=== PATIENT | female | born 1950 | race Caucasian/White ===

== ENCOUNTER → 2016-07-27 | Outpatient (CLI) | payer MEDICARE ==
[2016-07-27 10:41] LABS: Basophils # (A) 0.1 k/uL (0-0.2); Basophils % (A) 1 %; CH 31.3; CHCM 33.6; Eosinophils # (A) 0.2 k/uL (0-0.7); Eosinophils % (A) 2 %; HCT 42.1 % (34.0-46.0); HDW 2.72; HGB 13.9 gm/dL (11.4-16.0); Luc # (Auto) 0.25; Luc % (Auto) 4; Lymphocytes # (A) 1.5 k/uL (1.0-4.8); Lymphocytes % (A) 20 %; MCH 30.8 pg (25.0-35.0); MCHC 32.9 g/dL (31.0-37.0); MCV 93.7 fL (80.0-100.0); Mean Platelet Volume 7.1; Monocytes # (A) 0.4 k/uL (0-1.0); Monocytes % (A) 5 %; Neutrophils % (A) 68 %; RBC 4.49 m/uL (3.80-5.40); RDW 13.5 % (11.5-15.5); WBC 7.3 k/uL (3.8-10.6)
[2016-07-27 11:15] LABS: Calcium 9.4 mg/dL (8.4-10.2); Magnesium 2.1 mg/dL (1.6-2.3); Phosphorous 3.7 mg/dL (2.5-4.5); Potassium 4.8 mmol/L (3.5-5.1); Uric Acid 5.4 mg/dL (3.7-7.4)
[2016-07-27 11:24] LABS: % Iron Saturation 17.6 % (20-50)
== END | disposition home or self-care (01) ==
LOC: LABWHC1 09:56
PROVIDERS: ATTEND Nurse Practitioner Family
DX: N18.3 Chronic kidney disease, stage 3 (moderate) (principal); N39.0 Urinary tract infection, site not specified; D64.9 Anemia, unspecified; E55.9 Vitamin D deficiency, unspecified; E21.3 Hyperparathyroidism, unspecified; M10.9 Gout, unspecified
CPT/HCPCS: 36415; 80048; 82728; 83540; 83550; 83735; 83970; 84100; 84550; 85025

== ENCOUNTER → 2016-07-28 | Outpatient (CLI) | payer MEDICARE ==
--- NOTE | 2016-07-29 13:58 | MM ---
Reason for exam: screening (asymptomatic). Last mammogram was performed 2 years and 3 months ago. History: Patient is postmenopausal. Physical Findings: A clinical breast exam by your physician is recommended on an annual basis and results should be correlated with mammographic findings. MG 3D Screening Mammo W/Cad Bilateral CC and MLO view(s) were taken. Prior study comparison: April 29, 2014, bilateral MG screening mammo w CAD. There are scattered fibroglandular densities. Stable intramammary lymph node on the right. No significant changes when compared with prior studies. ASSESSMENT: Negative, BI-RAD 1 RECOMMENDATION: Routine screening mammogram of both breasts in 1 year.
== END | disposition home or self-care (01) ==
LOC: RADMAMWWP 14:40
PROVIDERS: ATTEND Family Medicine
DX: Z12.31 Encounter for screening mammogram for malignant neoplasm of breast (principal)
CPT/HCPCS: 77063; G0202

== ENCOUNTER → 2016-08-24 | Outpatient (CLI) | payer MEDICARE ==
[2016-08-24 11:41] LABS: Basophils % (A) 1 %; CH 32.2; CHCM 34.4; Eosinophils # (A) 0.1 k/uL (0-0.7); Eosinophils % (A) 2 %; HCT 44.5 % (34.0-46.0); HDW 2.78; HGB 14.8 gm/dL (11.4-16.0); Luc # (Auto) 0.18; Luc % (Auto) 3; Lymphocytes # (A) 1.4 k/uL (1.0-4.8); Lymphocytes % (A) 25 %; MCH 31.3 pg (25.0-35.0); MCHC 33.3 g/dL (31.0-37.0); MCV 94.1 fL (80.0-100.0); Mean Platelet Volume 6.3; Monocytes # (A) 0.3 k/uL (0-1.0); Monocytes % (A) 6 %; Neutrophils # (A) 3.7 k/uL (1.3-7.7); Neutrophils % (A) 63 %; RBC 4.72 m/uL (3.80-5.40); RDW 13.7 % (11.5-15.5); WBC 5.8 k/uL (3.8-10.6); WBC (Perox) 5.87
[2016-08-24 11:56] LABS: Appearance,Urine Cloudy (Clear); Bacteria,Urine Rare /hpf; Bilirubin,Urine Negative (Negative); Glucose,Urine (UA) Negative (Negative); Ketones,Urine Negative (Negative); Leukocyte Esterase,Urine Small (Negative); Mucus,Urine Rare /hpf; Nitrite,Urine Negative (Negative); Particle Count 5092; Protein,Urine Trace (Negative); Specific Gravity,Urine 1.018 (1.001-1.035); Squamous Epithelial Cell,Urine 8 /hpf (0-4); UA Billing (MACRO vs. MICRO) MICRO; Urobilinogen,Urine <2.0 mg/dL (<2.0); WBC,Urine 4 /hpf (0-5)
[2016-08-24 12:41] LABS: Calcium 9.3 mg/dL (8.4-10.2); Phosphorous 3.1 mg/dL (2.5-4.5); Potassium 3.9 mmol/L (3.5-5.1); Uric Acid 6.5 mg/dL (3.7-7.4)
[2016-08-24 12:51] LABS: % Iron Saturation 31.2 % (20-50)
--- NOTE | 2016-08-24 15:42 | US ---
EXAMINATION TYPE: US kidneys/renal and bladder DATE OF EXAM: 08/24/2016 3:31 PM COMPARISON: US in PACS CLINICAL HISTORY: N18.3 CKD STAGE 3. CKD, pt states no complaints at this time EXAM MEASUREMENTS: Right Kidney: 8.2 x 3.9 x 3.5 cm. Some lobation of the right kidney may be present. Left Kidney: 8.8 x 4.3 x 4.1 cm Right Kidney: Small in size, cortical thinning, no evidence of hydro Left Kidney: Small in size, cortical thinning, no evidence of hydro Bladder: wnl Bilateral Jets seen: Only right jet visualized IMPRESSION: 1. No acute ultrasound abnormality
== END | disposition home or self-care (01) ==
LOC: RADUSWWP 11:12
PROVIDERS: ATTEND Nurse Practitioner Family
DX: N18.3 Chronic kidney disease, stage 3 (moderate) (principal); N25.81 Secondary hyperparathyroidism of renal origin; E61.1 Iron deficiency; E55.9 Vitamin D deficiency, unspecified; M10.9 Gout, unspecified; N39.0 Urinary tract infection, site not specified
CPT/HCPCS: 36415; 76770; 80048; 81001; 82306; 82728; 83540; 83550; 83735; 83970; 84100; 84550; 85025

== ENCOUNTER → 2016-09-20 | Outpatient (CLI) | payer MEDICARE ==
[2016-09-20 10:56] LABS: Basophils # (A) 0.1 k/uL (0-0.2); Basophils % (A) 1 %; CH 31.6; CHCM 33.7; Eosinophils # (A) 0.1 k/uL (0-0.7); Eosinophils % (A) 3 %; HCT 39.7 % (34.0-46.0); HDW 2.65; HGB 13.3 gm/dL (11.4-16.0); Luc # (Auto) 0.18; Luc % (Auto) 3; Lymphocytes # (A) 1.3 k/uL (1.0-4.8); Lymphocytes % (A) 24 %; MCH 31.6 pg (25.0-35.0); MCHC 33.5 g/dL (31.0-37.0); MCV 94.3 fL (80.0-100.0); Mean Platelet Volume 6.5; Monocytes # (A) 0.4 k/uL (0-1.0); Monocytes % (A) 7 %; Neutrophils # (A) 3.5 k/uL (1.3-7.7); Neutrophils % (A) 63 %; RBC 4.21 m/uL (3.80-5.40); RDW 13.9 % (11.5-15.5); WBC 5.6 k/uL (3.8-10.6); WBC (Perox) 5.52
[2016-09-20 10:59] LABS: UA Billing (MACRO vs. MICRO) CHEM
[2016-09-20 11:27] LABS: Calcium 9.3 mg/dL (8.4-10.2); Magnesium 1.9 mg/dL (1.6-2.3); Phosphorous 3.7 mg/dL (2.5-4.5); Potassium 4.4 mmol/L (3.5-5.1); Uric Acid 5.8 mg/dL (3.7-7.4)
[2016-09-20 11:33] LABS: % Iron Saturation 21.7 % (20-50)
== END | disposition home or self-care (01) ==
LOC: LABWHC1 10:20
PROVIDERS: ATTEND Nurse Practitioner Family
DX: N25.81 Secondary hyperparathyroidism of renal origin (principal); N18.3 Chronic kidney disease, stage 3 (moderate); E55.9 Vitamin D deficiency, unspecified; E61.1 Iron deficiency; M10.9 Gout, unspecified; N39.0 Urinary tract infection, site not specified
CPT/HCPCS: 36415; 80048; 81003; 81050; 82306; 82728; 83540; 83550; 83735; 83970; 84100; 84156; 84550; 85025

== ENCOUNTER → 2017-01-17 | Outpatient (CLI) | payer MEDICARE ==
[2017-01-17 11:03] LABS: Appearance,Urine Cloudy (Clear); Bacteria,Urine Many /hpf; Bilirubin,Urine Negative (Negative); Glucose,Urine (UA) Negative (Negative); Ketones,Urine Negative (Negative); Leukocyte Esterase,Urine Moderate (Negative); Mucus,Urine Rare /hpf; Nitrite,Urine Negative (Negative); Particle Count 6073; Protein,Urine Negative (Negative); Specific Gravity,Urine 1.009 (1.001-1.035); Squamous Epithelial Cell,Urine 3 /hpf (0-4); UA Billing (MACRO vs. MICRO) MICRO; Urobilinogen,Urine <2.0 mg/dL (<2.0); WBC,Urine 23 /hpf (0-5)
[2017-01-17 11:13] LABS: Basophils % (A) 1 %; CH 31.9; CHCM 34.1; Eosinophils # (A) 0.2 k/uL (0-0.7); Eosinophils % (A) 3 %; HCT 41.3 % (34.0-46.0); HDW 2.67; HGB 14.1 gm/dL (11.4-16.0); Luc # (Auto) 0.13; Luc % (Auto) 2; Lymphocytes # (A) 1.5 k/uL (1.0-4.8); Lymphocytes % (A) 26 %; MCH 32.1 pg (25.0-35.0); MCHC 34.2 g/dL (31.0-37.0); MCV 93.9 fL (80.0-100.0); Mean Platelet Volume 6.6; Monocytes # (A) 0.3 k/uL (0-1.0); Monocytes % (A) 6 %; Neutrophils # (A) 3.4 k/uL (1.3-7.7); Neutrophils % (A) 62 %; RBC 4.39 m/uL (3.80-5.40); RDW 13.6 % (11.5-15.5); WBC 5.6 k/uL (3.8-10.6); WBC (Perox) 5.39
[2017-01-17 11:24] LABS: Calcium 9.3 mg/dL (8.4-10.2); Phosphorous 3.4 mg/dL (2.5-4.5); Potassium 4.6 mmol/L (3.5-5.1); Uric Acid 6.5 mg/dL (3.7-7.4)
[2017-01-17 11:33] LABS: % Iron Saturation 34.2 % (20-50)
== END | disposition home or self-care (01) ==
LOC: LABWHC1 10:13
PROVIDERS: ATTEND Nurse Practitioner Family
DX: E55.9 Vitamin D deficiency, unspecified (principal); E61.1 Iron deficiency; N18.3 Chronic kidney disease, stage 3 (moderate); M10.9 Gout, unspecified; N39.0 Urinary tract infection, site not specified; N25.81 Secondary hyperparathyroidism of renal origin
CPT/HCPCS: 36415; 80048; 81001; 82306; 82728; 83540; 83550; 83735; 83970; 84100; 84550; 85025

== ENCOUNTER → 2017-09-07 | Outpatient (CLI) | payer MEDICARE ==
--- NOTE | 2017-09-09 08:00 | MM ---
Reason for exam: screening (asymptomatic). Last mammogram was performed 1 year and 1 month ago. History: Patient is postmenopausal. Physical Findings: A clinical breast exam by your physician is recommended on an annual basis and results should be correlated with mammographic findings. MG 3D Screening Mammo W/Cad Bilateral CC and MLO view(s) were taken. Prior study comparison: July 28, 2016, bilateral MG 3d screening mammo w/cad. April 29, 2014, bilateral MG screening mammo w CAD. There are scattered fibroglandular densities. No suspicious abnormality. No significant changes when compared with prior studies. ASSESSMENT: Negative, BI-RAD 1 RECOMMENDATION: Routine screening mammogram of both breasts in 1 year.
== END | disposition home or self-care (01) ==
LOC: RADMAMWWP 09:50
PROVIDERS: ATTEND Family Medicine
DX: Z12.31 Encounter for screening mammogram for malignant neoplasm of breast (principal)
CPT/HCPCS: 77063; 77067

== ENCOUNTER → 2017-09-07 | Outpatient (CLI) | payer MEDICARE ==
[2017-09-07 11:18] LABS: Basophils # (A) 0.1 k/uL (0-0.2); Basophils % (A) 1 %; Eosinophils # (A) 0.2 k/uL (0-0.7); Eosinophils % (A) 3 %; HCT 41.7 % (34.0-46.0); HGB 14.3 gm/dL (11.4-16.0); Lymphocytes # (A) 1.7 k/uL (1.0-4.8); Lymphocytes % (A) 27 %; MCH 31.8 pg (25.0-35.0); MCHC 34.2 g/dL (31.0-37.0); MCV 93.2 fL (80.0-100.0); Mean Platelet Volume 6.6; Monocytes # (A) 0.4 k/uL (0-1.0); Monocytes % (A) 7 %; Neutrophils # (A) 3.7 k/uL (1.3-7.7); Neutrophils % (A) 60 %; Platelet Count 286 k/uL (150-450); RBC 4.48 m/uL (3.80-5.40); RDW 13.4 % (11.5-15.5); WBC 6.2 k/uL (3.8-10.6)
[2017-09-07 11:23] LABS: Appearance,Urine Cloudy (Clear); Bacteria,Urine Few /hpf; Bilirubin,Urine Negative (Negative); Blood,Urine Negative (Negative); Color,Urine Yellow; Glucose,Urine (UA) Negative (Negative); Ketones,Urine Negative (Negative); Leukocyte Esterase,Urine Moderate (Negative); Mucus,Urine Rare /hpf; Nitrite,Urine Negative (Negative); Protein,Urine Trace (Negative); Specific Gravity,Urine 1.018 (1.001-1.035); Squamous Epithelial Cell,Urine 26 /hpf (0-4); Urobilinogen,Urine <2.0 mg/dL (<2.0); WBC,Urine 12 /hpf (0-5)
[2017-09-07 11:33] LABS: Calcium 9.2 mg/dL (8.4-10.2); Magnesium 2.1 mg/dL (1.6-2.3); Phosphorus 3.5 mg/dL (2.5-4.5); Potassium 4.2 mmol/L (3.5-5.1); Uric Acid 6.7 mg/dL (3.7-7.4)
[2017-09-07 16:26] LABS: Iron Saturation 38.26 (12.00-45.00)
[2017-09-07 16:34] LABS: Vitamin D 25 Hydroxy 35.7 ng/mL (30.0-100.0)
[2017-09-07 17:01] LABS: Parathyroid Hormone Intact 92.8 pg/mL (14.0-72.0)
== END | disposition home or self-care (01) ==
LOC: LABWHC1 10:17
PROVIDERS: ATTEND Nurse Practitioner Family
DX: N18.3 Chronic kidney disease, stage 3 (moderate) (principal); N25.81 Secondary hyperparathyroidism of renal origin; E61.1 Iron deficiency; E55.9 Vitamin D deficiency, unspecified; M10.9 Gout, unspecified; N39.0 Urinary tract infection, site not specified
CPT/HCPCS: 36415; 80048; 81001; 82306; 82728; 83540; 83550; 83735; 83970; 84100; 84550; 85025

== ENCOUNTER → 2018-03-10 | Outpatient (CLI) | payer MEDICARE ==
[2018-03-10 09:47] LABS: Basophils # (A) 0.1 k/uL (0-0.2); Basophils % (A) 1 %; Eosinophils # (A) 0.1 k/uL (0-0.7); Eosinophils % (A) 2 %; HCT 43.2 % (34.0-46.0); HGB 14.2 gm/dL (11.4-16.0); Lymphocytes # (A) 1.4 k/uL (1.0-4.8); Lymphocytes % (A) 26 %; MCH 31.1 pg (25.0-35.0); MCHC 32.9 g/dL (31.0-37.0); MCV 94.5 fL (80.0-100.0); Mean Platelet Volume 6.5; Monocytes # (A) 0.3 k/uL (0-1.0); Monocytes % (A) 6 %; Neutrophils # (A) 3.5 k/uL (1.3-7.7); Neutrophils % (A) 64 %; Platelet Count 260 k/uL (150-450); RBC 4.57 m/uL (3.80-5.40); RDW 13.6 % (11.5-15.5); WBC 5.4 k/uL (3.8-10.6)
[2018-03-10 12:40] LABS: Appearance,Urine Cloudy (Clear); Bacteria,Urine Rare /hpf; Bilirubin,Urine Negative (Negative); Blood,Urine Trace (Negative); Color,Urine Yellow; Glucose,Urine (UA) Negative (Negative); Ketones,Urine Negative (Negative); Leukocyte Esterase,Urine Trace (Negative); Mucus,Urine Rare /hpf; Nitrite,Urine Negative (Negative); PH, Urine 5.5 (5.0-8.0); Protein,Urine Negative (Negative); RBC,Urine 3 /hpf (0-5); Specific Gravity,Urine 1.015 (1.001-1.035); Squamous Epithelial Cell,Urine 7 /hpf (0-4); Urobilinogen,Urine <2.0 mg/dL (<2.0); WBC,Urine 6 /hpf (0-5)
[2018-03-10 15:36] LABS: Iron Saturation 26.69 (12.00-45.00)
[2018-03-10 15:45] LABS: Vitamin D 25 Hydroxy 37.1 ng/mL (30.0-100.0)
[2018-03-10 15:49] LABS: Albumin 4.2 g/dL (3.80-4.90); Anion Gap 6.5 mmol/L (4.00-12.00); Calcium 8.9 mg/dL (8.7-10.3); Carbon Dioxide 27.5 mmol/L (21.6-31.8); Phosphorus 3.3 mg/dL (2.4-5.1); Potassium 4.3 mmol/L (3.5-5.5); Uric Acid 7.5 mg/dL (2.9-7.7)
== END | disposition home or self-care (01) ==
LOC: LABWHC1 08:59
PROVIDERS: ATTEND Internal Medicine Nephrology
DX: N39.0 Urinary tract infection, site not specified (principal); N25.81 Secondary hyperparathyroidism of renal origin; N18.3 Chronic kidney disease, stage 3 (moderate); D63.1 Anemia in chronic kidney disease; M10.9 Gout, unspecified
CPT/HCPCS: 36415; 80048; 81001; 82040; 82306; 82728; 83540; 83550; 83735; 83970; 84100; 84550; 85025

== ENCOUNTER → 2018-07-04 | Outpatient (CLI) | payer MEDICARE ==
--- NOTE | 2018-07-04 11:17 | US ---
EXAMINATION TYPE: US venous doppler duplex LE RT DATE OF EXAM: 07/04/2018 11:04 AM COMPARISON: NONE CLINICAL HISTORY: 68-year-old female I80.9 DVT M25.561 Pain in RLE. Pain right leg for 1 week. Patien t on Coumadin - AFIB SIDE PERFORMED: right TECHNIQUE: The lower extremity deep venous system is examined utilizing real time linear array sonog monik with graded compression, doppler sonography and color-flow sonography. FINDINGS: VESSELS IMAGED: External Iliac Vein (EIV) Common Femoral Vein Deep Femoral Vein Greater Saphenous Vein * Femoral Vein Popliteal Vein Small Saphenous Vein * Proximal Calf Veins Posterior tibial veins (* superficial vessels) Respiratory Therapist Assistant notes: Right Leg: No evidence of DVT as visualized. Complex anechoic area right poplitea l fossa = 5.0 x 1.0 x 2.6cm, probable Vick's cyst. Previously, this measured 2.9 x 1.1 x 2.6 cm with a 5 mm loose body. IMPRESSION: 1. No evidence for DVT within the right lower extremity. 2. Complex, moderate sized Vick's cyst measuring 5.0 x 2.6 cm versus 2.9 x 2.6 cm, previously. 5 mm body is again seen within.
== END | disposition home or self-care (01) ==
LOC: RADUSWWP 10:34
PROVIDERS: ATTEND Orthopaedic Surgery
DX: M71.21 Synovial cyst of popliteal space [Baker], right knee (principal); M17.11 Unilateral primary osteoarthritis, right knee; S76.311A Strain of muscle, fascia and tendon of the posterior muscle group at thigh level, right thigh, initial encounter

== ENCOUNTER → 2018-07-11 | Outpatient (CLI) | payer MEDICARE ==
[2018-07-11 13:16] LABS: Basophils # (A) 0.1 k/uL (0-0.2); Basophils % (A) 1 %; Eosinophils # (A) 0.1 k/uL (0-0.7); Eosinophils % (A) 3 %; HCT 42.8 % (34.0-46.0); Lymphocytes # (A) 1.8 k/uL (1.0-4.8); Lymphocytes % (A) 33 %; MCH 31.2 pg (25.0-35.0); MCHC 32.8 g/dL (31.0-37.0); MCV 95.2 fL (80.0-100.0); Mean Platelet Volume 6.4; Monocytes # (A) 0.3 k/uL (0-1.0); Monocytes % (A) 6 %; Neutrophils % (A) 55 %; Platelet Count 261 k/uL (150-450); RDW 13.2 % (11.5-15.5); WBC 5.5 k/uL (3.8-10.6)
[2018-07-11 13:58] LABS: Appearance,Urine Cloudy (Clear); Bacteria,Urine Rare /hpf; Bilirubin,Urine Negative (Negative); Blood,Urine Trace (Negative); Color,Urine Yellow; Glucose,Urine (UA) Negative (Negative); Hyaline Casts,Urine 3 /lpf (0-2); Ketones,Urine Negative (Negative); Leukocyte Esterase,Urine Small (Negative); Mucus,Urine Rare /hpf; Nitrite,Urine Negative (Negative); Protein,Urine Trace (Negative); RBC,Urine 2 /hpf (0-5); Specific Gravity,Urine 1.023 (1.001-1.035); Squamous Epithelial Cell,Urine 5 /hpf (0-4); Urobilinogen,Urine <2.0 mg/dL (<2.0); WBC,Urine 15 /hpf (0-5)
[2018-07-11 18:34] LABS: Iron Saturation 24.69 (12.00-45.00); Parathyroid Hormone Intact 76.1 pg/mL (14.0-72.0)
[2018-07-11 18:36] LABS: Vitamin D 25 Hydroxy 32.8 ng/mL (30.0-100.0)
[2018-07-11 18:40] LABS: Albumin 4.2 g/dL (3.80-4.90); Anion Gap 7.1 mmol/L (4.00-12.00); Calcium 9.4 mg/dL (8.7-10.3); Carbon Dioxide 26.9 mmol/L (21.6-31.8); Magnesium 2.1 mg/dL (1.5-2.4); Phosphorus 4.1 mg/dL (2.4-5.1); Potassium 4.9 mmol/L (3.5-5.5); Uric Acid 6.4 mg/dL (2.9-7.7)
== END ==
LOC: LABWHC1 12:10
PROVIDERS: ATTEND Internal Medicine Nephrology
DX: N18.3 Chronic kidney disease, stage 3 (moderate) (principal); E21.3 Hyperparathyroidism, unspecified; D63.1 Anemia in chronic kidney disease; E55.9 Vitamin D deficiency, unspecified; M10.9 Gout, unspecified; N39.0 Urinary tract infection, site not specified
CPT/HCPCS: 36415; 80048; 81001; 82040; 82306; 82728; 83540; 83550; 83735; 83970; 84100; 84550; 85025

== ENCOUNTER → 2018-12-22 | Outpatient (CLI) | payer MEDICARE ==
--- NOTE | 2018-12-26 09:22 | MM ---
Reason for exam: screening (asymptomatic). Last mammogram was performed 1 year and 3 months ago. History: Patient is postmenopausal. Physical Findings: A clinical breast exam by your physician is recommended on an annual basis and results should be correlated with mammographic findings. MG 3D Screening Mammo W/Cad Bilateral CC and MLO view(s) were taken. Prior study comparison: September 07, 2017, bilateral MG 3d screening mammo w/cad. July 28, 2016, bilateral MG 3d screening mammo w/cad. There are scattered fibroglandular densities. There is chronic nodularity bilaterally. No significant changes when compared with prior studies. ASSESSMENT: Benign, BI-RAD 2 RECOMMENDATION: Routine screening mammogram of both breasts in 1 year.
== END | disposition home or self-care (01) ==
LOC: RADMAMWWP 13:57
PROVIDERS: ATTEND Family Medicine
DX: Z12.31 Encounter for screening mammogram for malignant neoplasm of breast (principal)
CPT/HCPCS: 77063; 77067

== ENCOUNTER → 2019-03-20 | Outpatient (CLI) | payer MEDICARE ==
[2019-03-20 11:25] LABS: HCT 38.6 % (34.0-46.0); HGB 12.8 gm/dL (11.4-16.0); MCH 31.4 pg (25.0-35.0); MCHC 33.1 g/dL (31.0-37.0); MCV 94.9 fL (80.0-100.0); Mean Platelet Volume 6.2; Platelet Count 245 k/uL (150-450); RBC 4.07 m/uL (3.80-5.40); RDW 13.5 % (11.5-15.5); WBC 7.5 k/uL (3.8-10.6)
[2019-03-20 11:41] LABS: INR 1.7 (<1.2); Partial Thromboplastin Time 29.7 sec (22.0-30.0); Prothrombin Time 17.3 sec (9.0-12.0)
[2019-03-20 12:14] LABS: Albumin 3.7 g/dL (3.5-5.0); Calcium 8.9 mg/dL (8.4-10.2); Potassium 3.6 mmol/L (3.5-5.1); Total Bilirubin 0.9 mg/dL (0.2-1.3); Total Protein 6.3 g/dL (6.3-8.2)
[2019-03-20 12:15] LABS: Appearance,Urine Clear (Clear); Bilirubin,Urine Negative (Negative); Blood,Urine Negative (Negative); Color,Urine Light Yellow; Glucose,Urine (UA) Negative (Negative); Ketones,Urine Negative (Negative); Leukocyte Esterase,Urine Negative (Negative); Nitrite,Urine Negative (Negative); Protein,Urine Negative (Negative); Specific Gravity,Urine 1.006 (1.001-1.035); Urobilinogen,Urine <2.0 mg/dL (<2.0)
== END | disposition home or self-care (01) ==
LOC: LABPAT 10:44
PROVIDERS: ATTEND Orthopaedic Surgery
DX: Z01.812 Encounter for preprocedural laboratory examination (principal); Z01.818 Encounter for other preprocedural examination; Z79.01 Long term (current) use of anticoagulants
CPT/HCPCS: 36415; 80053; 81003; 85027; 85610; 85730; 87070

== ENCOUNTER 2019-04-02 10:54 | Day surgery (SDC) | payer MEDICARE ==
[2019-03-28 15:06] VITALS: BMI 37.1
[~2019-04-02 10:54] MED LIST: ACETAMINOPHEN TAB 500 MG TAB PO ONE; CLINDAMYCIN 900 MG in DEXTROSE 5% IN WATER 50 ML IVPB ONE; HYDROmorphone 0.5 MG/0.5 ML SYRINGE IVP PRN; MELOXICAM 7.5 MG TAB PO ONE; MIDAZOLAM 2 MG/2 ML VIAL IV PRN; ONDANSETRON 4 MG/2 ML VIAL IVP ONE; ROPIVACAINE 246.25 MG, EPINEPHrine 0.5 MG, KETOROLAC 30 MG, cloNIDine HCL/PF 80 MCG, WA... MISCELLANE ONE; TRANEXAMIC ACID 1,000 MG in SODIUM CHLORIDE 0.9% 100 ML IVPB ONE
[2019-04-02] MEDS ORDERED: LIDOCAINE 1% 20 ML VIAL (10MG/ML) FOR IV START INTRADERMA ONE (11:30)
[2019-04-02] MEDS: LACTATED RINGERS 1,000 ML IV SCH ×4 (11:30→22:02)
[2019-04-02] MEDS ORDERED: DEXAMETHASONE SOD PHOSPHATE 10 MG/ML 1 ML VIAL IV ONE (11:37)
[2019-04-02 11:43] LABS: INR 1.1 (<1.2); Prothrombin Time 11.6 sec (9.0-12.0)
[2019-04-02] MEDS ORDERED: MIDAZOLAM 2 MG/2 ML VIAL IVP ONE (11:51)
[2019-04-02] MEDS ORDERED: fentaNYL (PF) 50 MCG/ML 2 ML AMP IVP ONE (11:52)
--- NOTE | 2019-04-02 12:25 | P.ANPRN ---
Procedure Note - Anesthesia - Nerve Block Performed Left Adductor Canal Infusion Time Out Performed: Yes ([id number]) Date of Procedure: 04/02/19 Procedure Start Time: 11:51 Procedure Stop Time: 12:04 Location of Patient: PreOp Indication: Acute Post-Operative Pain, Requested by Surgeon Specifically requested for management of pain by DrRemington: Bao Bell Sedation Type: Sedate with meaningful contact maintained Preparation: Sterile Prep, Sterile Dressing Position: Supine Catheter Depth at Skin (cm): 5 Catheter: Indwelling Needle Types: Pajunk Needle Gauge: 20 Ultrasound used to visualize needle placement: Yes Ultrasound used to observe medication spread: Yes Injectate: Other (see comment) (Ropi 0.5% 10 cc and Lido 1% with epi 10 cc. Mixture) Blood Aspirated: Yes Pain Paresthesia on Injection Noted: Yes Resistance on Injection: Normal Image Stored and Saved: Yes Events: Uneventful and Well Tolerated
[2019-04-02] MEDS ORDERED: PROPOFOL 10 MG/ML 20 ML VIAL IV ONE (12:34)
[2019-04-02] MEDS ORDERED: fentaNYL (PF) 50 MCG/ML 2 ML AMP ONE (12:34)
[2019-04-02] MEDS ORDERED: MIDAZOLAM 2 MG/2 ML VIAL ONE (12:34)
[2019-04-02] MEDS ORDERED: PHENYLEPHRINE-0.9% NACL SYG 1 MG/10 ML SYRINGE ONE (12:34)
[2019-04-02] MEDS ORDERED: MAGNESIUM HYDROXIDE 2,400 MG/10 ML CUP PO PRN (12:40)
[2019-04-02] MEDS ORDERED: HYDROcodone/APAP 5-325MG 1 EACH TAB PO PRN (12:40)
[2019-04-02] MEDS ORDERED: ONDANSETRON 4 MG/2 ML VIAL IVP PRN (12:40)
[2019-04-02] MEDS ORDERED: NALOXONE 0.4 MG/ML 1 ML VIAL IV PRN (12:40)
[2019-04-02] MEDS ORDERED: NA PHOS,M-B/NA PHOS,DI-BA 133 ML ENEMA RECTAL PRN (12:40)
[2019-04-02] MEDS ORDERED: ceFAZolin 3,000 MG in SODIUM CHLORIDE 0.9% IRRIGATIO 3,000 ML IRRIGATION ONE (12:40)
[2019-04-02] MEDS ORDERED: HYDROmorphone 0.5 MG/0.5 ML SYRINGE IVP PRN ×3 (12:40)
[2019-04-02] MEDS ORDERED: TEMAZEPAM 15 MG CAP PO PRN (12:40)
[2019-04-02] MEDS ORDERED: BISACODYL 10 MG SUPP RECTAL PRN (12:40)
[2019-04-02] MEDS ORDERED: LACTATED RINGERS 1,000 ML IV ONE (14:00)
--- NOTE | 2019-04-02 14:18 | P.OP ---
Date of Procedure: 04/02/19 Procedure(s) Performed: PREOPERATIVE DIAGNOSIS: Left knee severe osteoarthritis with genu varum POSTOPERATIVE DIAGNOSIS: Left knee severe osteoarthritis with genu varum OPERATION: Left knee cemented total replacement arthroplasty. ANESTHESIA: Spinal ESTIMATED BLOOD LOSS: 100 ml. INSTRUMENT/CONTROL TECHNICIAN: Nallely Mayo PA-C (assistance with: patient positioning, retraction, exposure, hemostasis, leg positioning, implantation, irrigation, closure, dressing) COMPLICATIONS: None apparent. COMPONENTS IMPLANTED: Journey II total knee system from [employer], [facility] INDICATIONS: Mrs. Mak is a 69-year-old female with a history of left knee osteoarthritis. The patient's knee is end-stage, and conservative management has failed. The operation of knee replacement has been discussed at length in the office, as well as potential risks and complications. These are inclusive of, but not limited to: bleeding, infection, scarring, discomfort, blood vessel and nerve damage, need for further surgery, failure to relieve symptoms, persistence, recurrence, or worsening of problems, loosening, dislocation, wear, blood clot, pulmonary embolism, , gait dysfunction, stiffness, and other risks as discussed in the office. The patient elects to proceed and the consent form has been signed. PROCEDURE: The patient was taken to the operating room and positioned on the operating room table in the supine position. Anesthesia was initiated. Care was taken to make sure that all pressure points were adequately padded. The operative lower extremity was prepped and draped in the usual aseptic fashion using ChloraPrep. Ioban drape was used for the case and the patient received intravenous antibiotics within one hour of the incision. A pneumotourniquet and leg juan were used for the case. The limb was exsanguinated with an Esmarch bandage and the tourniquet was inflated to 350 mmHg. Time-out was called confirming the patient's identity, side, procedure and administration of antibiotics and tranexamic acid. The incision was then created midline directly over the left knee, carried down through skin and into the subcutaneous tissues and down to fascia. Full thickness subcutaneous medial flap was developed. Medial parapatellar arthrotomy was performed and the interior of the knee was inspected. There was end-stage osteoarthritis of the knee with a mild to moderate genu varum type deformity. The fat pad was excised and proximal medial release on the tibia was completed using meticulous dissection and a curved osteotome. The anterior cruciate ligament was taken down. Note was made of significant attrition of the anterior and significant degenerative appearance of the cruciate ligaments. The exposure was excellent. The knee was flexed 90 degrees and the patella was everted. The [employer] pre- made distal cutting block was attached and pinned into position. The planned cut was analyzed visually and with the alignment yennifer and found to be satisfactory without the need for any adjustment. The oscillating saw was then used to make the distal femoral cut and make the alignment holes for the 5 in 1 block. This cut was confirmed to be flat with the flat end of an osteotome. The 5 in 1 block was then used to create the anterior posterior condylar resections and the chamfer cuts. The retractors were placed around the tibia and the tibial surface was addressed. The [employer] pre-made guide was placed onto the exposed tibial surface and pinned into position to siri the rotational alignment. The alignment of the guide was checked for depth of plannned resection, slope, and varus valgus. Guide was confirmed to be in good position and the tibial cut was then created with protection of the posterior neurovascular structures and the collateral ligaments. The tibial cut surface was removed and sized. Spacer block technique was then used to confirm that the flexion and extension gaps were equal. Soft tissue releases and adjustment of the tibial and/or femoral cuts were made, as necessary, until the gaps were equal. This included release of the posterior cruciate ligament, which was excessively tight in this patient. Prior to placing trial components, anesthetic solution consisting of ropivicaine with epinephrine, ketorolac, and clonidine was injected carefully and methodically in a grid pattern using aspiration technique into the soft tissue around the knee circumferentially, starting with the deeper tissues first and progressing to fascia, and then finally the skin/subcutaneous tissue. Particular care was taken when injecting the posterior capsule, with avoidance of the midline posterior area. The trial components were inserted. The tibial tray was allowed to self center and the patella was noted to track very well. The position of the tibial component was marked and noted to be nearly exactly aligned with the pre-drilled holes from the [employer] guide. The tibia was then finished for a stemmed tibial component. Patellar resurfacing was performed using a reamer. The size of the required patellar component was estimated and the patellar surface was then reamed down to a residual thickness which would recreate the [place] thickness with the component. The exact placement of the patellar component was adjusted for position based on preoperative x-rays and intraoperative findings. Trial components were removed and the cut surfaces of the bone were pulse lavaged thoroughly and dried. Cement was mixed on the back table and applied to the final components. Cement was then applied to the tibial surface and pressurized into the surface using finger pressurization technique. The tibial component was then applied and excess cement was removed after it was impacted securely and noted to be flush with the cut surface. In similar fashion, the cement was applied to the cut femoral surface, pressurized in using finger pressurization and the component was impacted into place. Excess cement was removed. The polyethylene spacer was then implanted and locked into position. The patellar component was then applied in similar technique and a patellar clamp was used to hold the patella in place as the cement hardened. Once the cement had fully hardened, the knee was reinspected. Any other cement extrusion was removed and final kinematic testing showed range of motion from 0 to 130 degrees with excellent stability, both medially and laterally and appropriate alignment of the leg. Patellar tracking was excellent. The knee was then thoroughly pulse lavaged with normal saline. The tourniquet was deflated and hemostasis was obtained with electrocautery and IV tranexamic acid, 1 g given at the start of the operation and 1 g at the start of closure. Closure was with #2 Ethibond in the fascia/capsule and supplemented with #2 Quill, 2-0 Vicryl suture was used for the subcutaneous tissues and 3-0 Quill for the skin. Dermabond/Steri-Strips were then applied. A lightly compressive dressing was applied using Webril and an Gato wrap. The patient was then transferred to stretcher and taken to the recovery room in stable condition. Sponge and needle counts were correct.
[2019-04-02] MEDS ORDERED: ROPIVACAINE 0.2%-NS ON-Q PUMP 1,090 MG, EMPTY PAIN BALL 1 EACH MISCELLANE PRN (14:59)
--- NOTE | 2019-04-02 15:32 | XR ---
EXAMINATION TYPE: XR knee limited LT DATE OF EXAM: 04/02/2019 COMPARISON: 09/14/2015 HISTORY: Post TKA TECHNIQUE: 2 views left knee FINDINGS: Femoral and tibial components of in place of the knee postsurgical changes are present. No acute fractures are evident IMPRESSION: 1. No acute fractures post knee replacement
[2019-04-02] MEDS ORDERED: WARFARIN 5 MG TAB PO ONE (18:00)
[2019-04-02] MEDS: CLINDAMYCIN 900 MG in DEXTROSE 5% IN WATER 50 ML IVPB SCH ×4 (18:16→22:40)
[2019-04-02] MEDS: SENNOSIDES-DOCUSATE SODIUM 1 EACH TAB PO SCH (20:53)
[2019-04-02] MEDS: METOPROLOL TARTRATE 50 MG TAB PO SCH (20:54)
[2019-04-02] MEDS: PRAVASTATIN SODIUM 40 MG TAB PO SCH (20:54)
[2019-04-02] MEDS: cloNIDine HCL 0.1 MG TAB PO SCH (20:58)
[2019-04-02] MEDS: LATANOPROST 0.005% OPHTH DROPS 2.5 ML BTL RIGHT EYE SCH (21:00)
--- NOTE | 2019-04-02 21:17 | CONS ---
CONSULTATION DATE OF SERVICE: 04/02/2019 REASON FOR CONSULTATION: Advice regarding atrial ablation, hypertension, multiple medical issues, requested by Dr. Bell. HISTORY OF PRESENT ILLNESS: This 69-year-old woman with a past medical history of multiple medical problems including history of atrial fibrillation, hypertension, pneumonia, hyperlipidemia, hypothyroidism, being followed by Dr. Priscilla Jacobs in the outpatient setting was admitted after left total knee arthroplasty by Dr. Bell. The patient was taking Coumadin previously, which was reversed for surgery. INR is 1.1. Otherwise, there is no history of fever, rigors. No history of headache, loss of consciousness, seizures at this time. PAST MEDICAL HISTORY: History of atrial fibrillation, hypertension, hyperlipidemia, hypothyroidism, stage III kidney disease. MEDICATIONS: Prior to admission include home medications are: 1. Vitamin D2 50,000 every 14 days. 2. Coumadin 2 mg Tuesday, Tuesday, Tuesday. 3. HydroDIURIL 12.5 mg p.o. daily. 4. Catapres 0.1 p.o. b.i.d. 5. Coumadin 4 mg Tuesday, Tuesday, , Tuesday. 6. Lopressor 50 mg p.o. b.i.d. 7. Pravachol 40 mg q.h.s. 8. Synthroid 100 mcg p.o. q.a.m. 9. Xalatan 1 drop right eye q.h.s. 10.Colace 100 mg p.o. b.i.d. ALLERGIES: PENICILLIN. FAMILY HISTORY: History of cancer in the family. SOCIAL HISTORY: No history of smoking. No history of alcohol intake. REVIEW OF SYSTEMS: ENT: No diminished hearing, no diminished vision. CARDIOVASCULAR: No angina, or palpitations, otherwise mentioned earlier. RESPIRATIONS: No cough or hemoptysis. GI no nausea or vomiting. no dysuria or hematuria. NERVOUS SYSTEM: No numbness or weakness. ALLERGY/IMMUNOLOGY: No asthma or hayfever. MUSCULOSKELETAL as mentioned earlier. HEMATOLOGY: As mentioned earlier. ENDOCRINE: As mentioned earlier, hypothyroidism. CONSTITUTIONAL: As mentioned earlier. DERMATOLOGY: Negative. RHEUMATOLOGY negative. PSYCHIATRY as mentioned earlier. PHYSICAL EXAMINATION: GENERAL: The patient is alert, oriented x3. VITAL SIGNS: Pulse 69, blood pressure 110/73, respiration 15, temperature 97.2, pulse ox 94% on room air. HEENT: Conjunctivae normal. Oral mucosa moist. NECK is no jugular venous distention. No carotid bruit. No lymph node enlargement. CARDIOVASCULAR SYSTEM: S1, S2 muffled. No S3, no S4. RESPIRATIONS: Breath sounds diminished in the bases. A few scattered rhonchi. No crackles. ABDOMEN: Soft, nontender. LEGS: Status post knee arthroplasty. NERVOUS SYSTEM: Higher functions as mentioned earlier. Moves all 4 limbs. No focal motor or sensory deficits. LYMPHATICS: No lymph nodes palpable in the neck, axillae or groin. SKIN: No ulcer, rash or bleeding. JOINTS: No active deforming arthropathy. LABS: INR is 1.1. Other labs are the preop labs hematology, coags are within normal limits. Creatinine is 1.22, LDL is 115. The PTH was 76.1. TSH was 8. ASSESSMENT: 1. Status post left total knee joint arthroplasty. 2. Atrial fibrillation. 3. Hypertension. 4. Hyperlipidemia. 5. Hypothyroidism. 6. History of stage III kidney disease. 7. Tonsillectomy. 8. History of colonoscopy. 9. FULL CODE. RECOMMENDATIONS AND DISCUSSION: In this 69-year-old woman who presented after surgery. At this time, I recommend continue the current medications, management and symptomatic treatment. Resume the home medications. Follow with Orthopedics, Coumadin protocol and continue to monitor. Other than that , monitor PT, INR closely. I would also repeat a BMP to ensure stability for the renal function. Otherwise, rest of the medications will be continued and we will follow the patient closely. A copy of this dictation being forwarded to Dr. Priscilla Jacobs who is the primary physician. MMODL / IJN: [id number] /
[2019-04-03] MEDS: LEVOTHYROXINE 100 MCG TAB PO SCH ×2 (05:43→06:02)
[2019-04-03] MEDS: LACTATED RINGERS 1,000 ML IV SCH ×4 (08:34→22:12)
--- NOTE | 2019-04-03 08:38 | P.PN ---
Subjective Progress Note Date: 04/03/19 Principal diagnosis: Status post left total knee arthroplasty This is a 69 year-old female post left total knee arthroplasty. This is post-op day 1. The patient was evaluated at the bedside today. She states she had a little nausea this morning but it has resolved. The patient denies vomiting, abdominal pain, shortness of breath, and chest pain this morning. She states her pain is controlled at this time. The patient has been up with physical therapy and ambulated in the hallway. Objective - Vital Signs Vital signs: Vital Signs Temp 97.5 F L 04/03/19 07:20 Pulse 83 04/03/19 07:20 Resp 17 04/03/19 07:20 BP 119/78 04/03/19 07:20 Pulse Ox 93 L 04/03/19 07:20 Intake & Output 04/02/19 04/03/19 04/03/19 18:59 06:59 18:59 Intake Total 1557 600 Output Total 100 150 Balance 1457 600 -150 Weight 83.461 kg Intake: IV 1557 Intake, IV Titration 600 Amount Lactated Ringers 1,000 ml 600 @ 100 mls/hr IV .Q10H ROMANA Rx#:[id number] Output: Urine 150 Estimated Blood Loss 100 Other: Voiding Method Toilet Toilet # Voids 2 - Exam The patient does not appear in acute distress. Alert and orientated x3. Nick ssing is clean dry and intact. Incision appears fine with no erythema or active drainage. Calf is soft and nontender. Good foot and ankle motion without difficulty. Sensation and circulatory status is intact. - Labs CBC & Chem 7: 04/03/19 08:32 04/03/19 08:32 Assessment and Plan (1) Primary osteoarthritis of left knee Current Visit: Yes Status: Acute Code(s): M17.12 - UNILATERAL PRIMARY OSTEOARTHRITIS, LEFT KNEE SNOMED Code(s): 358065768613862 (2) Status post total left knee replacement using cement Current Visit: Yes Status: Acute Code(s): Z96.652 - PRESENCE OF LEFT ARTIFICIAL KNEE JOINT SNOMED Code(s): 8701227334293 (3) A-fib Current Visit: Yes Status: Acute Code(s): I48.91 - UNSPECIFIED ATRIAL FIBRILLATION SNOMED Code(s): 25976388 (4) Hypertension Current Visit: Yes Status: Acute Code(s): I10 - ESSENTIAL (PRIMARY) HYPERTENSION SNOMED Code(s): 83684348 (5) Hyperlipidemia Current Visit: Yes Status: Acute Code(s): E78.5 - HYPERLIPIDEMIA, UNSPECIFIED SNOMED Code(s): 22928909 (6) Hypothyroidism Current Visit: Yes Status: Acute Code(s): E03.9 - HYPOTHYROIDISM, UNSPECIFIED SNOMED Code(s): 21610580 (7) Chronic kidney disease, stage 3 Current Visit: Yes Status: Acute Code(s): N18.3 - CHRONIC KIDNEY DISEASE, STAGE 3 (MODERATE) SNOMED Code(s): 248999015 Plan: 1. Continue pain control 2. Anticoagulation with Coumadin 3. Continue physical therapy and ambulation 4. Anticipate discharge home with homecare tomorrow
[2019-04-03] MEDS: cloNIDine HCL 0.1 MG TAB PO SCH ×2 (08:41→22:11)
[2019-04-03] MEDS: HYDROCHLOROTHIAZIDE 12.5 MG CAP PO SCH (08:41)
[2019-04-03] MEDS: METOPROLOL TARTRATE 50 MG TAB PO SCH ×2 (08:41→22:11)
[2019-04-03 09:00] LABS: Basophils % (A) 0 %; Eosinophils % (A) 0 %; HCT 34.2 % (34.0-46.0); HGB 11.5 gm/dL (11.4-16.0); Lymphocytes # (A) 0.7 k/uL (1.0-4.8); Lymphocytes % (A) 4 %; MCH 31.7 pg (25.0-35.0); MCHC 33.7 g/dL (31.0-37.0); Mean Platelet Volume 6.2; Monocytes # (A) 0.4 k/uL (0-1.0); Monocytes % (A) 2 %; Neutrophils # (A) 15.3 k/uL (1.3-7.7); Neutrophils % (A) 93 %; Platelet Count 330 k/uL (150-450); RBC 3.64 m/uL (3.80-5.40); RDW 13.1 % (11.5-15.5); WBC 16.5 k/uL (3.8-10.6)
[2019-04-03 09:18] LABS: INR 1.2 (<1.2); Prothrombin Time 12.8 sec (9.0-12.0)
[2019-04-03 09:22] LABS: Calcium 8.7 mg/dL (8.4-10.2); Potassium 3.7 mmol/L (3.5-5.1)
[2019-04-03] MEDS ORDERED: FUROSEMIDE 10 MG/ML 2 ML VIAL IV ONE (11:50)
--- NOTE | 2019-04-03 14:32 | P.PN ---
Progress Note - Text Progress Note Date: 04/03/19 Patient seen at 6:40 am. Pt without complaints. Pain controlled. Denies leg weakness. Left adductor canal catheter site clean and dry. OnQ @ 8 ml/hr A/P POD#1 s/p L TKA - continue onQ @ 8 ml/hr
[2019-04-03] MEDS: HYDROcodone/APAP 5-325MG 1 EACH TAB PO PRN (17:09)
[2019-04-03] MEDS ORDERED: WARFARIN 5 MG TAB PO ONE (18:00)
--- NOTE | 2019-04-03 19:16 | PN ---
PROGRESS NOTE DATE OF SERVICE: 04/03/2019 This 69-year-old woman who was admitted with left total knee arthroplasty, is improving significantly. No chest pain. No palpitations. No fever. PHYSICAL EXAM: Alert and oriented x3. The pulse is 90, blood pressure 116/77, respirations 16, temperature 97.8, pulse ox 98% on room air. HEENT: Conjunctivae normal. NECK: No JVD. CARDIOVASCULAR: S1, S2 muffled. RESPIRATORY: Breath sounds diminished in the bases. No rhonchi. No crackles. ABDOMEN soft, nontender. LEGS status post arthroplasty. NERVOUS SYSTEM: No focal deficits. LABS: WBC 16.5, creatinine is 1.19. ASSESSMENT: 1. Status post left total knee arthroplasty. 2. Increased WBC, possibly reactive. 3. Atrial fibrillation. 4. Hypertension. 5. Hyperlipidemia. 6. History of hypothyroidism. 7. History of stage 3 chronic kidney disease. 8. Tonsillectomy. 9. History of colonoscopy. 10.FULL CODE. RECOMMENDATIONS AND DISCUSSION: Recommend to continue current medications, management and symptomatic treatment. Continue with incentive spirometry. Continue the DVT prophylaxis. The patient is stable. Recommend repeat labs as an outpatient. Otherwise, continue to monitor. Further recommendations to follow. MMODL / IJN: [id number] /
[2019-04-03] MEDS: PRAVASTATIN SODIUM 40 MG TAB PO SCH (22:11)
[2019-04-03] MEDS: SENNOSIDES-DOCUSATE SODIUM 1 EACH TAB PO SCH (22:11)
[2019-04-03] MEDS: LATANOPROST 0.005% OPHTH DROPS 2.5 ML BTL RIGHT EYE SCH (22:11)
[2019-04-04] MEDS: LEVOTHYROXINE 100 MCG TAB PO SCH (04:32)
[2019-04-04] MEDS ORDERED: ACETAMINOPHEN TAB 325 MG TAB PO PRN (05:32)
[2019-04-04 07:31] LABS: INR 1.8 (<1.2); Prothrombin Time 18.2 sec (9.0-12.0)
[2019-04-04 07:32] LABS: Calcium 8.2 mg/dL (8.4-10.2); Potassium 3.2 mmol/L (3.5-5.1)
[2019-04-04 07:45] VITALS: BP 106/73; PULSE 80; RESP 16; TEMP 98.7
--- NOTE | 2019-04-04 08:43 | P.DS ---
Providers Expected date of discharge: 04/04/19 Attending physician: Bao Bell Consults: 04/02/19 12:40 Consult Physician Routine Consulting Provider: Gracy Evans Consult Reason/Comments: medical managment Do you want consulting provider notified?: Yes Primary care physician: Priscilla Jacobs - Discharge Diagnosis(es) (1) Primary osteoarthritis of left knee Current Visit: Yes Status: Acute (2) Status post total left knee replacement using cement Current Visit: Yes Status: Acute (3) A-fib Current Visit: Yes Status: Acute (4) Hypertension Current Visit: Yes Status: Acute (5) Hyperlipidemia Current Visit: Yes Status: Acute (6) Hypothyroidism Current Visit: Yes Status: Acute (7) Chronic kidney disease, stage 3 Current Visit: Yes Status: Acute Hospital Course: This is a pleasant 69-year-old female last seen in our office with complaints of left knee pain. Patient has known history of degenerative arthritis of the left knee and presented to discuss options. After discussion and consideration, the patient elected to proceed with a left total knee arthroplasty. Patient was se en preoperatively, and medically cleared for surgery by Dr. Jacobs . Patient was admitted to [facility] underwent left total knee arthroplasty on 04/02/[address] Bell. The procedure was performed without complications or sequelae. The patient is seen and evaluated at bedside today. Pain is well-controlled. Patient has no new complaints today and denies any fevers, chills, nausea, vomiting, or shortness of breath. Vital signs are stable. Dressing is clean dry and intact. Incision looks fine with no erythema or active drainage. Calf is soft and nontender. Patient has full foot and ankle motion without difficulty. Patient's left lower extremity is neurovascularly intact. The patient is orthopedically stable for discharge today. Pertinent Studies: Laboratory Tests 04/03/19 04/04/19 04/04/19 08:32 06:52 06:52 WBC 16.5 H RBC 3.64 L PT 18.2 H INR 1.8 H Potassium 3.2 L BUN 20 H Creatinine 1.22 H Patient Condition at Discharge: Stable Plan - Discharge Summary Discharge Rx Participant: Yes New Discharge Prescriptions: New Docusate [Colace] 100 mg PO BID #60 capsule HYDROcodone/APAP 5-325MG [[employer] 5] 1 - 2 each PO Q4-6H PRN #50 tab PRN Reason: Pain No Action cloNIDine HCL [Catapres] 0.1 mg PO BID Pravastatin Sodium [Pravachol] 40 mg PO HS Levothyroxine Sodium [Synthroid] 100 mcg PO QAM Latanoprost Ophth [Xalatan 0.005%] 1 drops RIGHT EYE HS Warfarin Sodium 4 mg PO SUTUTHSA Metoprolol Tartrate [Lopressor] 50 mg PO BID Warfarin [Coumadin] 2 mg PO MOWEFR Hydrochlorothiazide [Hydrodiuril] 12.5 mg PO DAILY Ergocalciferol (Vitamin D2) [Drisdol] 50,000 unit PO Q14D Discharge Medication List Latanoprost Ophth [Xalatan 0.005%] 1 drops RIGHT EYE HS 05/21/14 [History] Levothyroxine Sodium [Synthroid] 100 mcg PO QAM 05/21/14 [History] Pravastatin Sodium [Pravachol] 40 mg PO HS 05/21/14 [History] cloNIDine HCL [Catapres] 0.1 mg PO BID 05/21/14 [History] Metoprolol Tartrate [Lopressor] 50 mg PO BID 10/14/14 [History] Warfarin Sodium 4 mg PO SUTUTHSA 10/14/14 [History] Ergocalciferol (Vitamin D2) [Drisdol] 50,000 unit PO Q14D 03/28/19 [History] Hydrochlorothiazide [Hydrodiuril] 12.5 mg PO DAILY 03/28/19 [History] Warfarin [Coumadin] 2 mg PO MOWEFR 03/28/19 [History] Docusate [Colace] 100 mg PO BID #60 capsule 04/02/19 [Rx] HYDROcodone/APAP 5-325MG [[employer]] 1 - 2 each PO Q4-6H PRN #50 tab 04/04/19 [Rx] Follow up Appointment(s)/Referral(s): [facility], [NON-STAFF] - As Needed Priscilla Jacobs MD [Primary Care Provider] - 1 Week Bao Bell MD [STAFF PHYSICIAN] - 04/17/19 2:15 pm Ambulatory/Diagnostic Orders: Continuous Passive Motion (CPM) Machine [DME.AMB1] Time Frame: 3 Weeks, Location: None Selected Activity/Diet/Wound Care/Special Instructions: Weightbearing as tolerated with a walker CPM 5-6 hours daily Daily dressing changes, keep incision clean and dry Keep Dermabond tape in place until follow up appointment Resume Coumadin per medical management Call [facility] with questions or concerns [phone] Discharge Disposition: HOME WITH HOME HEALTH SERVICES
[2019-04-04] MEDS: METOPROLOL TARTRATE 50 MG TAB PO SCH (08:51)
[2019-04-04] MEDS: HYDROCHLOROTHIAZIDE 12.5 MG CAP PO SCH (08:51)
[2019-04-04] MEDS: cloNIDine HCL 0.1 MG TAB PO SCH (08:51)
[2019-04-04] MEDS: HYDROcodone/APAP 5-325MG 1 EACH TAB PO PRN (08:51)
[2019-04-04] MEDS: POTASSIUM CHLORIDE ER 20 MEQ TAB.ER PO SCH ×3 (09:11→13:03)
[2019-04-04] MEDS ORDERED: PANTOPRAZOLE 40 MG/10 ML VIAL IVP ONE (12:17)
[2019-04-04] MEDS: LACTATED RINGERS 1,000 ML IV SCH (12:51)
--- NOTE | 2019-04-04 12:53 | US ---
EXAMINATION TYPE: US venous doppler duplex LE LT DATE OF EXAM: 04/04/2019 12:42 PM COMPARISON: NONE CLINICAL HISTORY: r/o dvt . Left leg pain and swelling post total knee SIDE PERFORMED: Left TECHNIQUE: The lower extremity deep venous system is examined utilizing real time linear array sonog monik with graded compression, doppler sonography and color-flow sonography. VESSELS IMAGED: External Iliac Vein (EIV) Common Femoral Vein Deep Femoral Vein Greater Saphenous Vein * Femoral Vein Popliteal Vein Small Saphenous Vein * Proximal Calf Veins (* superficial vessels) Left Leg: Negative for DVT IMPRESSION: 1. Left lower extremity ultrasound negative for deep venous thrombosis.
--- NOTE | 2019-04-04 14:43 | PN ---
PROGRESS NOTE DATE OF SERVICE: 04/04/2019 This is a 69-year-old woman who was admitted after left total knee arthroplasty, is improving significantly. Patient has some swelling, received a dose of Lasix and potassium is low being replaced. The patient has some minimal swelling of the left leg. Ultrasound of the leg shows no evidence of DVT. No chest pain. No palpitations. No fever. No shortness of breath. PHYSICAL EXAM: Alert and oriented x3. Pulse 80, blood pressure 106/73, respirations 16, temperature 98.7, pulse ox 94% on room air. HEENT: Conjunctivae normal. NECK: No jugular venous distention. CARDIOVASCULAR SYSTEM: S1, S2 muffled. RESPIRATORY SYSTEM: Breath sounds diminished at the bases, no rhonchi, no crackles. ABDOMEN: Soft, nontender. LEGS: Status post left knee arthroplasty. Minimal swelling of the left leg. NERVOUS SYSTEM: No focal deficits. LABS: WBC is 16.5. INR 1.8. Sodium 139, potassium 3.2. ASSESSMENT: 1. Status post left total knee arthroplasty. 2. Increased WBC possibly reactive. 3. Mild hypokalemia. 4. Atrial fibrillation. 5. Hypertension. 6. Left leg edema with no evidence of DVT. 7. Hyperlipidemia. 8. History of hypothyroidism. 9. History of stage III chronic kidney disease. 10.Coumadin monitoring. 11.Tonsillectomy. 12.History of colonoscopy. 13.FULL CODE. RECOMMENDATION: I recommend to continue current management and symptomatic treatment. I recommend repeat labs with the primary physician in the outpatient setting, CBC, BMP, PT, INR. Otherwise monitor closely. The rest of the recommendations per Orthopedic Surgery. Further recommendations to follow. MMODL / IJN: [id number] /
[2019-04-04] MEDS ORDERED: WARFARIN 2 MG TAB PO ONE (18:00)
[2019-04-08] MEDS ORDERED: ERGOCALCIFEROL 50,000 UNIT CAP PO SCH (09:00)
== END 2019-04-04 14:50 | disposition home health service (06) ==
LOC: OR 10:54 → 4SSUR 17:12 → OR 04-04 14:50
PROVIDERS: ATTEND Orthopaedic Surgery
DX: M17.12 Unilateral primary osteoarthritis, left knee (principal); M21.162 Varus deformity, not elsewhere classified, left knee; E78.5 Hyperlipidemia, unspecified; I13.10 Hypertensive heart and chronic kidney disease without heart failure, with stage 1 through stage 4 chronic kidney disease, or unspecified chronic kidney disease; N18.3 Chronic kidney disease, stage 3 (moderate); D72.829 Elevated white blood cell count, unspecified; E66.9 Obesity, unspecified; Z68.35 Body mass index [BMI] 35.0-35.9, adult; I48.20 Chronic atrial fibrillation, unspecified; E78.00 Pure hypercholesterolemia, unspecified; E03.9 Hypothyroidism, unspecified; H40.9 Unspecified glaucoma; I42.8 Other cardiomyopathies; Z79.01 Long term (current) use of anticoagulants; Z79.890 Hormone replacement therapy; Z79.899 Other long term (current) drug therapy; Z88.0 Allergy status to penicillin; Z87.01 Personal history of pneumonia (recurrent)
CPT/HCPCS: 27447; 97116; 97161; 64448; 76942; 80048 ×2; 85025; 85610 ×3; 88300; 73560; 93971; C1713; C1776; J2250; J0171; J1100; J1940; J2405; J0690; J3010; J1885; J2795 ×2; J0735; C9113

== ENCOUNTER → 2020-02-15 | Outpatient (CLI) | payer MEDICARE ==
--- NOTE | 2020-02-15 13:16 | US ---
EXAMINATION TYPE: US kidneys/renal and bladder DATE OF EXAM: 02/15/2020 COMPARISON: Prior ultrasound 2017 CLINICAL HISTORY: N18.3 chronic kidney disease stage 3. CKD EXAM MEASUREMENTS: Right Kidney: 7.8 x 3.8 x 3.7cm Left Kidney: 8.3 x 4.4 x 3.7 cm Right Kidney: atrophic, no evidence of hydronephrosis Left Kidney: atrophic, no evidence of hydronephrosis Bladder: wnl Bilateral Jets seen: yes There is no evidence for hydronephrosis at this point in time. No nephrolithiasis is seen. No sawyer s are identified on images saved. Persistent small size to both kidneys with cortical thinning. The urinary bladder is satisfactorily distended. Bilateral ureteral jets are seen. IMPRESSION: Evidence of chronic medical renal disease redemonstrated. No hydronephrosis noted bilater ally.
== END | disposition home or self-care (01) ==
LOC: RADUSWWP 12:08
PROVIDERS: ATTEND Internal Medicine Nephrology
DX: N18.30 Chronic kidney disease, stage 3 unspecified (principal)
CPT/HCPCS: 76770

== ENCOUNTER → 2020-05-23 | Outpatient (CLI) | payer MEDICARE ==
--- NOTE | 2020-05-23 13:03 | XR ---
EXAMINATION TYPE: XR bone survey complete DATE OF EXAM: 05/23/2020 COMPARISON: NONE HISTORY: 70-year-old female D47.2, monoclonal gammopathy. TECHNIQUE: 16 views FINDINGS: Chest: Heart is borderline enlarged. This can be correlated clinically. Lungs are clear. No suspicious rib l esion identified. Cervical spine: Multilevel moderate spondylotic change mid cervical spine. Uncovertebral joint arthropathy in the low er cervical spine. Alignment is maintained. No suspicious lytic lesions. Bilateral humerus: Moderate degenerative change at both AC joints. No lytic lesions or endosteal scalloping seen. Calvarium: Scattered venous lakes. No discrete punched out lytic lesions within the calvarium or mandible. Thoracic spine: Moderate endplate spondylosis mid to lower thoracic spine. 12 rib-bearing thoracic vertebral bodies. [facility] within the lower thoracic spine. Vertebral body heights are preserved. Lumbar spine: Accentuated lumbar lordosis. Baastrup's disease. Advanced hypertrophic facet arthropathy. Trace grade 1 retrolisthesis L1-L2, L2-L3, L3-L4. Moderate degenerative disc disease L5-S1 and mild at additiona l levels. No vertebral compression collapse. Pelvis: No lytic destructive lesion. Mild to moderate degenerative change right hip and mild at the left hip with joint space narrowing and marginal spurring. There may be some mild degenerative change of the r ight SI joint. Bilateral femurs: At least moderate degenerative change within the right medial compartment of the knee and at least mi ld within the lateral compartment of the right knee. There is evidence of prior left total knee arthr oplasty. No endosteal scalloping or lytic lesion seen within either femur. IMPRESSION: No suspicious lytic lesion to suggest myelomatous involvement. Borderline cardiomegaly and scattered degenerative change as outlined above.
== END | disposition home or self-care (01) ==
LOC: RADXRMAIN 11:39
PROVIDERS: ATTEND Internal Medicine Hematology & Oncology
DX: D47.2 Monoclonal gammopathy (principal); Z71.3 Dietary counseling and surveillance
CPT/HCPCS: 77075; 80048; 82232; 82784; 83883; 84165; 85025; 85652

== ENCOUNTER → 2021-07-31 | Outpatient (CLI) | payer MEDICARE ==
--- NOTE | 2021-08-04 10:33 | MM ---
Reason for exam: screening (asymptomatic). Last mammogram was performed 2 years and 7 months ago. History: Patient is postmenopausal. Physical Findings: A clinical breast exam by your physician is recommended on an annual basis and results should be correlated with mammographic findings. MG 3D Screening Mammo W/Cad Bilateral CC and MLO view(s) were taken. Prior study comparison: December 22, 2018, bilateral MG 3d screening mammo w/cad. September 07, 2017, bilateral MG 3d screening mammo w/cad. There are scattered fibroglandular densities. There are benign appearing round calcifications bilaterally. There is chronic nodularity in the right breast. Asymmetric breast tissue in the left upper anterior breast, stable from 2019. There is no discrete abnormality. ASSESSMENT: Benign, BI-RAD 2 RECOMMENDATION: Routine screening mammogram of both breasts in 1 year.
== END | disposition home or self-care (01) ==
LOC: RADMAMWWP 12:11
PROVIDERS: ATTEND Family Medicine
DX: Z12.31 Encounter for screening mammogram for malignant neoplasm of breast (principal); Z78.0 Asymptomatic menopausal state
CPT/HCPCS: 77063; 77067

== ENCOUNTER → 2021-12-24 | Outpatient (CLI) | payer MEDICARE ==
--- NOTE | 2021-12-24 12:18 | US ---
EXAMINATION TYPE: US pelvis complete transvag DATE OF EXAM: 12/24/2021 COMPARISON: NONE CLINICAL HISTORY: N92.6 irregular bleeding, N95.0 post menopausal bl. post menopausal bleeding. 2 epi sodes of vaginal bleeding, once in October and another in November (1 and 2 months ago) TECHNIQUE: Transvaginal (TV) and Transabdominal (TA) . Transabdominal sonographic images of the pel vis were acquired. Transvaginal sonographic images were medically necessary to better assess the fol lowing anatomy: uterus, endometrium Date of LMP: 35+ years ago EXAM MEASUREMENTS: Uterus: 7.2 x 2.7 x 4.1 cm Endometrial Stripe: 0.3 cm Right Ovary: unable to visualize Left Ovary: unable to visualize 1. Uterus: Anteverted heterogeneous. possible fibroid anterior body = 1.3 x 1.1 x 1.1cm 2. Endometrium: appears wnl 3. Right Ovary: Obscured by overlying bowel gas 4. Left Ovary: Obscured by overlying bowel gas 5. Bilateral Adnexa: appears wnl 6. Posterior cul-de-sac: wnl IMPRESSION: 1. Leiomyomatous change of the uterus.
== END | disposition home or self-care (01) ==
LOC: RADUSWWP 08:43
PROVIDERS: ATTEND Family Medicine
DX: D25.9 Leiomyoma of uterus, unspecified (principal)
CPT/HCPCS: 76830; 76856

== ENCOUNTER → 2022-08-24 | Outpatient (CLI) | payer MEDICARE ==
--- NOTE | 2022-08-24 14:27 | BD ---
EXAMINATION TYPE: Axial Bone Density DATE OF EXAM: 08/24/2022 CLINICAL HISTORY: 72 years old Female. ICD-10 CODE: Z78.0 ASYMPTOMATIC MENOPAUSAL STATE; M85.80 ANDRIY MALAGON Height: 57.5 Weight: 192 FRAX RISK QUESTIONS: Secondary Osteoporosis: yes 3. Menopause before 45: yes RISK FACTORS HISTORY OF: Postmenopausal woman: yes, at age 45 yrs old Take estrogen and/or progesterone medications: yes, for about 3 yrs in the past Lost more than 2 inches in height since high school: yes Hyperparathyroidism: no Adrenal Insufficiency: no MEDICATIONS: Thyroid Medications: yes, synthroid product for many yrs Additional Medications: bp med, statin for cholesterol, vit d Additional History: hypertension, thyroid, cholesterol, early menopause, arthritis, left tkr, EXAM MEASUREMENTS: Bone mineral densitometry was performed using the [employer]. Bone mineral density as measured about the Lumbar spine is: ----- L1-L4(G/cm2): 1.231 T Score Values are as follows: ----- L1: -0.7 ----- L2: -0.4 ----- L3: 0.9 ----- L4: 1.3 ----- L1-L4: 0.4 Z Score Values are as follows: ----- L1: 0.2 ----- L2: 0.6 ----- L3: 1.9 ----- L4: 2.3 ----- L1-L4: 1.4 Bone mineral density is the first at [facility]. Bone mineral density about the R hip (g/cm2): 0.836 Bone mineral density about the L hip (g/cm2): 0.819 T Score values are as follows: -----R Neck: -2.0 -----L Neck: -2.0 -----R Total: -1.4 -----L Total: -1.5 Z Score values are as follows: -----R Neck: -0.6 -----L Neck: -0.7 -----R Total: -0.3 -----L Total: -0.4 Bone mineral density is the first at [facility]. FRAX%s: The graph provided illustrates a 11.0% chance for a major osteoporotic fx and a 2.3% chance f or the hips probability for fx in 10 years time. IMPRESSION: Osteopenia (T Score between -2.5 and -1). There is slightly increased risk of fracture and the patient may be considered for treatment. Re-Screen 2-5 years. NOTE: T-SCORE=SD OF THE YOUNG ADULT MEAN.
--- NOTE | 2022-08-25 12:57 | MM ---
Reason for Exam: Screening (asymptomatic). Last mammogram was performed 1 year(s) and 1 month(s) ago. Patient History: Menarche at age 13. First Full-Term at age 17. Postmenopausal. Risk Values: Rosalie 5 year model risk: 1.3%. NCI Lifetime model risk: 3.3%. Prior Study Comparison: 09/07/2017 Bilateral Screening Mammogram, [facility]. 12/22/2018 Bilateral Screening Mammogram, [facility]. 07/31/2021 Bilateral Screening Mammogram, [facility]. Tissue Density: There are scattered fibroglandular densities. Findings: Analyzed By CAD. Pattern appears stable. There is a focal asymmetry within the 7:00 position middle right breast, stable from comparison. Scattered punctate calcifications are present. No suspicious groups of microcalcifications, spiculated or lobular masses, architectural distortion or other secondary signs of malignancy are mammographically apparent. Overall Assessment: Benign, BI-RAD 2 Management: Screening Mammogram of both breasts in 1 year. A negative mammogram report should not preclude additional follow up of suspicious palpable abnormalities. Patient should continue monthly self breast exam. A clinical breast exam by your physician is recommended on an annual basis and results should be correlated with mammographic findings. Electronically signed and approved by: Larry Briscoe D.O. Radiologis
== END | disposition home or self-care (01) ==
LOC: RADBDWWP 10:23
PROVIDERS: ATTEND Family Medicine
DX: Z12.31 Encounter for screening mammogram for malignant neoplasm of breast (principal); M85.89 Other specified disorders of bone density and structure, multiple sites; Z78.0 Asymptomatic menopausal state
CPT/HCPCS: 77063; 77067; 77080

== ENCOUNTER → 2023-08-11 | Outpatient (CLI) | payer MEDICARE ==
--- NOTE | 2023-08-11 11:14 | MM ---
Reason for Exam: Clinical finding. Last screening mammogram was performed 12 month(s) ago. Indicated Problems: Other indicated problem of the right side for 2 Month(s) : skin discoloration. Patient History: Menarche at age 13. First Full-Term at age 17. Postmenopausal. Sister had ovarian cancer under age 50. Sister had breast cancer at or over age 50. Sister had ovarian cancer. Risk Values: Rosalie 5 year model risk: 3.3%. NCI Lifetime model risk: 7.9%. Prior Study Comparison: 07/28/2016 Bilateral Screening Mammogram, [facility]. 09/07/2017 Bilateral Screening Mammogram, [facility]. 12/22/2018 Bilateral Screening Mammogram, [facility]. 07/31/2021 Bilateral Screening Mammogram, [facility]. 08/24/2022 Bilateral MG 3D screening mammo w/cad, [facility]. Tissue Density: There are scattered areas of fibroglandular density. Findings: Analyzed By CAD. No evidence for mass or distortion. No suspicious calcifications. Managed clinically. Ultrasound recommended for site of clinical concern right breast. Overall Assessment: Incomplete: need additional imaging evaluation, BI-RAD 0 Management: Diagnostic Breast Ultrasound of the right breast. . Results were given to the patient verbally at the time of exam. Patient should continue monthly self-breast exams. A clinical breast exam by your physician is recommended on an annual basis. This exam should not preclude additional follow-up of suspicious palpable abnormalities. Note on Rosalie scores and lifetime risk: 1. A Rosalie score greater than 3% is considered moderate risk. If this is the case, consider specialist referral to assess eligibility for a risk reducing agent. 2. If overall lifetime risk for the development of breast cancer is 20% or higher, the patient may qualify for future screening with alternating mammogram and breast MRI. Electronically signed and approved by: Zachary Fernández M.D. Radiologis
--- NOTE | 2023-08-11 11:14 | USB ---
Reason for Exam: Clinical finding. Patient History: Menarche at age 13. First Full-Term at age 17. Postmenopausal. Sister had ovarian cancer under age 50. Sister had breast cancer at or over age 50. Sister had ovarian cancer. Risk Values: Rosalie 5 year model risk: 3.3%. NCI Lifetime model risk: 7.9%. Prior Study Comparison: Screening Mammogram, [facility]. 12/22/2018 Bilateral Screening Mammogram, [facility]. 07/31/2021 Bilateral Screening Mammogram, [facility]. 08/24/2022 Bilateral MG 3D screening mammo w/cad, [facility]. Findings: The area of palpable concern of the right breast, the axilla of the right breast and the retroareolar of the right breast were scanned. No solid or cystic masses are identified. Managed clinically. Overall Assessment: Negative, BI-RAD 1 Management: Screening Mammogram of both breasts in 1 year. A clinical breast exam by your physician is recommended on an annual basis and results should be correlated with mammographic findings. This exam should not preclude additional follow-up of suspicious palpable abnormalities. Results were given to the patient verbally at the time of exam. Electronically signed and approved by: Zachary Fernández M.D. Radiologis
== END | disposition home or self-care (01) ==
LOC: RADMAMWWP 09:46
PROVIDERS: ATTEND Family Medicine
DX: R92.323 Mammographic fibroglandular density, bilateral breasts (principal); L81.9 Disorder of pigmentation, unspecified; Z78.0 Asymptomatic menopausal state; Z80.3 Family history of malignant neoplasm of breast
CPT/HCPCS: 77066; 76642; G0279; 77062